=== PATIENT | female | born 1995 | race Caucasian/White ===

== ENCOUNTER → 2017-06-25 | Day surgery (SDC) | payer OTHER, SELFPAY ==
[2017-06-19 09:07] VITALS: BMI 26.0
--- NOTE | 2017-06-19 09:28 | PAT Medication Instructions ---
Service Date Jun 19, 2017. Current Home Medication List Adapalene-Benzoyl Peroxide (Epiduo), 1 APPLN TOP HS PRN for PRN Sulfamethoxazole (Sulfamethoxazole), 1 TAB PO BID Medication Instructions For Your Scheduled Surgery - Hold the following medications 24 hours prior to surgery: Adapalene-Benzoyl Peroxide (Epiduo), 1 APPLN TOP HS PRN for PRN - Take the following medications the morning of surgery with a sip of water: Sulfamethoxazole (Sulfamethoxazole), 1 TAB PO BID - Take the following medications as scheduled the night before surgery: Sulfamethoxazole (Sulfamethoxazole), 1 TAB PO BID If you have any questions please call us at [phone] or [phone] or [phone]
[2017-06-19 09:44] LABS: BASO % 0.6 %; BASO ABS # 0.03 K/uL (0-0.2); EOS % 0.6 %; EOS ABS # 0.03 K/uL (0-0.5); HEMATOCRIT 40.3 % (37-47); HEMOGLOBIN 13.7 g/dL (12.0-16.0); LYMPH % 42.3 %; LYMPH ABS # 2.13 K/uL (1.2-3.4); MEAN CORPUSCULAR HEMOGLOBIN 29.9 pg (25-34); MONO % 17.1 %; MONO ABS # 0.86 K/uL (0.11-0.59); NEUT % 39.4 %; NEUT ABS # 1.99 K/uL (1.4-6.5); PLATELET COUNT 216 K/uL (130-400); RED CELL DISTRIBUTION WIDTH CV 12.2 % (11.5-14.5); RED CELL DISTRIBUTION WIDTH SD 39.1 fL (36.4-46.3); WHITE BLOOD COUNT 5.04 K/uL (4.8-10.8)
[2017-06-19 09:53] LABS: PTT PATIENT 27.3 SECONDS (21.0-31.0)
[2017-06-19 12:32] LABS: CREATININE 0.75 mg/dl (0.60-1.20)
[2017-06-19 12:33] LABS: CALCIUM 8.5 mg/dl (8.5-10.1); POTASSIUM 3.9 mmol/L (3.5-5.1)
[~2017-06-25] VITALS: Ht 160 cm; Wt 67.5 kg
[~2017-06-25] MED LIST: ACETAMINOPHEN 1000 MG/100 ML IV IV ONE; ACETAMINOPHEN 325 MG TAB PO PRN; ADAP0.05 TOP; ATROPINE SULFATE 0.1 MG/ML 5ML SYR IV PRN; BUPIVACAINE 0.25% 30 ML VIAL ONE; CEFAZOLIN 2000MG IV PUSH 10 ML IV SCH; DEXAMETHASONE SOD INJ 4 MG/ML VIAL ONE; EpHEDrine SULFATE INJ 50 MG/ML AMP IV PRN; FENTANYL CITRATE INJ 50 MCG/1 ML 2 ML VIAL ONE; GLYCOPYRROLATE INJ 0.2 MG/ML VIAL ONE; HYDROmorphone INJ 2 MG/ML SYR/VIAL IV PRN; HYDROmorphone INJ 2 MG/ML SYR/VIAL ONE; LACTATED RINGER'S 1000ML 1,000 ML IV SCH; LARYING-O-JET KIT (LTA) ONE; LIDOCAINE HCL 2% 2 ML VIAL (20MG/ML) ONE; LIDOCAINE/EPINEPHRINE 1% 20 ML VIAL ONE; METOCLOPRAMIDE HCL INJ 5 MG/ML 2 ML VIAL IV PRN; MIDAZOLAM HCL 1 MG/ML 2ML VIAL ONE; NEOSTIGMINE METHYLSULFATE 5 MG/5 ML SYR ONE; ONDANSETRON INJ 2 MG/ML 2 ML VIAL IV PRN; ONDANSETRON INJ 2 MG/ML 2 ML VIAL ONE; OXYCODONE/ACETAMINOPHEN 5-325 TAB PO PRN; PHENYLEPHRINE 100MCG/ML 5ML SYR IV PRN; PROPOFOL IV EMULSION 10 MG/ML 20 ML VIAL IV ONE; ROCURONIUM BROMIDE 10 MG/ML 5 ML VIAL IV ONE; SCOPOLAMINE 1.5 MG TDSY TD ONE; SODIUM CHLORIDE 0.9% 1000ML 1,000 ML IV SCH; SODIUM CHLORIDE 0.9% INJ 10 ML VIAL ONE; SULF20PO PO
[2017-06-25 05:50] VITALS: BP 109/77; PULSE 71; TEMP 36.6; O2SAT 99; Ht 160 cm; Wt 67.5 kg
--- NOTE | 2017-06-25 07:06 | History & Physical Bridge Note ---
H&P Re-Evaluation Bridge Note: I have examined the patient, reviewed the History & Physical and in the interval since the performance of the History & Physical I have noted the following changes of clinical significance: No changes noted
--- NOTE | 2017-06-25 11:01 | [facility] Post Operative Brief Note ---
Immediate Operative Summary Operative Date Jun 25, 2017. Pre-Operative Diagnosis bilateral breast hypertrophy Post-Operative Diagnosis bilateral breast hypertrophy Procedure(s) Performed Bilateral Mastopexy and Small Volume Reduction Surgeon Dr. Karyn Garza Retail Customer Service Representative Surgeon(s) Flower Bryant PA-C Estimated Blood Loss 50ml Findings none Specimens A. Left Breast Tissue (230 grams) B. Right Breast Tissue (220 grams) Anesthesia general Complication(s) None Disposition Recovery Room / PACU
--- NOTE | 2017-06-25 11:18 | Discharge Instructions ---
Discharge Instructions Date of Service Jun 25, 2017. Admission Reason for Admission: Encounter For Cosmetic Surgery, Breast Hypertrophy Discharge Discharge Diagnosis / Problem: breast hypertrophy Discharge Goals Goal(s): Decrease discomfort, Improve function Activity Recommendations Activity Limitations: per Instructions/Follow-up section ACTIVITY RECOMMENDATIONS: __Normal activities _x_No bending, lifting or straining __No driving __Driving allowed when you are off pain medications _x_Walking permitted __You should have help at home for ___ days DRESSINGS: __No dressings required _x_Keep dressings dry/in place until first office visit __Remove dressings ___ and leave dressings off __Apply ice ___ days __Remove dressings and reapply garment __Apply antibiotic ointment (Bacitracin, Neosporin, etc) to wounds 3-4 times/ day for 10 days BATHING: _x_Keep dressings dry _x_Sponge bathing permitted __Showering permitted _x_No swimming, hot tubs or soaking in a tub MEDICATIONS: Resume previous medications unless instructed otherwise by your surgeon. _x_Do not use aspirin, Motrin, Advil or Ibuprofen as these may promote bleeding. Please use Tylenol. _x_Prescription(s) provided: pain medication provided at your last office visit OTHER INSTRUCTIONS: __Record drain output 2-3 times per day SPECIAL CARE INSTRUCTIONS: * It is normal to have a mild fever after surgery. If your temperature is higher than 101.5 degrees F, please call the office at [phone]. * Constipation is a typical side effect of pain medication. An over-the- counter stool softener will help relieve this. * Leaking around surgical drains may occur and should not cause concern. Sometimes these drains become clogged. If this happens, remove the bulb and milk the clot out of the tube, then replace the bulb. * Drainage from wounds after liposuction is normal and should be expected. Garments will become soiled. You should protect furniture and bedding. This drainage should mostly subside within 2-3 days. Leave garments in place unless instructed to remove them. * If you have unusual drainage from a wound or are concerned you have an infection or have any questions or concerns, please call the office at [phone]. FOLLOW UP VISIT: If not already scheduled, please call the office, , when you return home after surgery to schedule an appointment to be seen in _2__ days. . Current Hospital Diet Patient's current hospital diet: Discharge Diet Recommended Diet: Regular Diet Procedures Procedures Performed: Bilateral Mastopexy and Small Volume Reduction Pending Studies Studies pending at discharge: yes List of pending studies: pathology Medical Emergencies . Who to Call and When: Medical Emergencies: If at any time you feel your situation is an emergency, please call 911 immediately. . Non-Emergent Contact Non-Emergency issues call your: Primary Care Provider, Surgeon . "Provider Documentation" section prepared by Flower Bryant. . VTE Core Measure Inpt VTE Proph given/why not?: SCD's [place] Drug Monitoring Program Search Results: no issues identified
[2017-06-25 12:00] VITALS: BP 102/56; PULSE 70; TEMP 36.4; O2SAT 98
[2017-06-25 12:29] VITALS: BP 93/54; PULSE 60; O2SAT 100
[2017-06-25 13:00] VITALS: BP 100/58; PULSE 81; O2SAT 100
--- NOTE | 2017-06-25 13:36 | Anesthesiology Progress Note ---
Anesthesia Post Op Note Date & Time Jun 25, 2017 at 13:36 Vital Signs Pain Intensity: 4.0 Vital Signs Past 12 Hours Date Time Temp Pulse Resp B/P (MAP) Pulse Ox O2 Delivery O2 Flow Rate FiO2 06/25/17 13:00 81 16 100/58 100 Room Air 06/25/17 12:29 60 14 93/54 100 Room Air 06/25/17 12:00 36.4 70 14 102/56 98 Room Air 06/25/17 11:55 36.5 61 12 129/67 97 Room Air 06/25/17 11:45 69 17 131/74 97 Room Air 06/25/17 11:35 70 17 133/72 96 Room Air 06/25/17 11:25 76 15 125/73 100 Oxymask 10 06/25/17 11:15 36.0 92 12 110/64 100 Oxymask 10 06/25/17 05:50 36.6 71 18 109/77 (88) 99 Room Air Notes Mental Status: alert / awake / arousable, participated in evaluation Pt Amnestic to Procedure: Yes Nausea / Vomiting: adequately controlled Pain: adequately controlled Airway Patency, RR, SpO2: stable & adequate BP & HR: stable & adequate Hydration State: stable & adequate Anesthetic Complications: no major complications apparent
[2017-06-25 13:52] VITALS: BP 100/58; PULSE 66; O2SAT 100
[2017-06-25 13:54] VITALS: BP 96/55
--- NOTE | 2017-06-25 16:30 | OPERATIVE REPORT ---
DATE OF OPERATION: 06/25/2017 PREOPERATIVE DIAGNOSIS: Bilateral macromastia and glandular breast ptosis. POSTOPERATIVE DIAGNOSIS: Same. PROCEDURE: Bilateral mastopexy with small volume breast reduction. SURGEON: Dr. Karyn Garza. ANGLE ROLL OPERATOR: Flower Bryant PA-C. ANESTHESIA: General. COMPLICATIONS: None. INDICATION FOR THE PROCEDURE: The patient is a 21-year-old female who presented to my office with concerns of large pendulous breasts with some symptoms of macromastia such as neck, shoulder, and upper back pain. She was unhappy with the cosmetic appearance of her breasts, but happy with the large size and desired a small decrease in cup size as well as repositioning of the breast and nipple-areolar complex. As such, we discussed whether to perform this was an insurance covered breast reduction or a cosmetic breast reduction and mastopexy. She opted for a mastopexy with small volume breast reduction. OPERATION AND FINDINGS: BRIEF DESCRIPTION OF THE PROCEDURE: Risks, benefits, and alternatives of the procedure were explained to the patient who agreed and signed consent. She was identified and marked in the preoperative holding area. She was brought to the operating room where she was positioned supine and placed under general anesthesia without incident. Surgical site was prepped and draped sterilely. A time-out procedure was performed. I began with the left side. Markings were reassessed. A 38 mm cookie cutter was used to circumscribe the nipple-areolar complex. The entire Iglesias pattern which had been marked was deepithelialized using a 15 blade scalpel. Subsequent to this, I raised medial and lateral skin flaps including skin and underlying subcutaneous tissue at the level of the superficial fascial system, approximately 1 cm in thickness. This was dissected along the glandular breast down to chest wall. This was performed medially and laterally as well as superiorly around the keyhole portion as the nipple needed to be significantly repositioned. Following this, I wedged out some breast parenchyma both medially and laterally, essentially creating a very wide dermal glandular pedicle. Hemostasis was achieved with electrocautery. The wound was irrigated with saline. A total of 230 grams were removed from the left breast and once I was satisfied with the size and shape of the breast inset was begun. The nipple-areolar complex was brought into the keyhole using 2-0 Vicryl deep dermal suture. The wound was closed first in a lateral to mid breast direction using 2-0 Vicryl deep dermals and then medial to mid breast using 2-0 Vicryl deep dermals. Vertical limb was also approximated using 2-0 Vicryl deep dermal sutures. The nipple-areolar complex was inset using 2-0 Vicryl deep dermal sutures. Next, the superficial dermal layer was closed using 2-0 PDO running Quill suture along the inframammary fold, 3-0 PDS interrupted dermal sutures for the vertical limb and nipple-areolar complex. Lastly 3-0 Monocryl running subcuticular suture was placed. A similar procedure was undertaken on the right side with maximal excision weight of 220 grams. Breasts were reasonably symmetric following this procedure. Following closure Dermabond Prineo was applied along the inframammary fold and vertical limb incisions. Dermabond was placed around the nipple-areolar complex. Dry dressings and a surgical bra were placed. The patient was awakened and transferred to recovery room in satisfactory condition. Flower Bryant PA-C was present and scrubbed throughout the entire procedure and was instrumental in providing retraction during dissection of the pedicle and assisting in simultaneous wound closure. I attest to the content of the Intraoperative Record and any orders documented therein. Any exception s are noted below.
== END | disposition home or self-care (01) ==
LOC: C.ACU 05:30
PROVIDERS: ATTEND Plastic Surgery
DX: N62 Hypertrophy of breast (principal); N64.81 Ptosis of breast; M54.2 Cervicalgia; M25.519 Pain in unspecified shoulder; E78.01 Familial hypercholesterolemia; E66.3 Overweight; Z98.818 Other dental procedure status; Z88.2 Allergy status to sulfonamides